=== PATIENT | female | born 1940 | race Caucasian/White ===

== ENCOUNTER 2017-01-10 18:47 | Emergency (ER) | payer OTHER ==
[2017-01-10 19:29] LABS: HEMOGLOBIN 13.5 gm/dl (12.3-15.3); RED BLOOD COUNT 4.22 M/UL (4.00-5.10); WHITE BLOOD COUNT 9.1 K/UL (4.5-11.0)
[2017-05-04] MEDS ORDERED: ALLERGY10 M1 PO (06:58)
[2017-05-04] MEDS ORDERED: BEVESPI (06:59)
[2017-05-04] MEDS ORDERED: BUMETANIDE2 MG PO (06:59)
[2017-05-04] MEDS ORDERED: AMARYL 2MG TABLE2 MG PO (07:00)
[2017-05-04] MEDS ORDERED: HYDRALAZINE HCL50 MG PO (07:01)
[2017-05-04] MEDS ORDERED: ISOSORBIDE DINI30 MG PO (07:01)
[2017-05-04] MEDS ORDERED: LEVOXYL88 MCG PO (07:03)
[2017-05-04] MEDS ORDERED: LOSARTAN POTAS100 MG PO (07:03)
[2017-05-04] MEDS ORDERED: GLUCOPHAGE500 MG PO (07:04)
[2017-05-04] MEDS ORDERED: TOPROL XL 100100 MG PO (07:05)
[2017-05-04] MEDS ORDERED: PROTONIX 40 MG40 M1 PO (07:05)
[2017-05-04] MEDS ORDERED: KLOR-CON M2020 MEQ PO (07:07)
[2017-05-04] MEDS ORDERED: ZOCOR20 MG PO (07:07)
[2017-05-04] MEDS ORDERED: LEVAQUIN500 MG PO (10:23)
== END 2017-01-10 22:50 | disposition home or self-care (01) ==
LOC: ER1 18:47
PROVIDERS: Specialist/Technologist Athletic Trainer
DX: R42 Dizziness and giddiness (principal); N28.9 Disorder of kidney and ureter, unspecified; I10 Essential (primary) hypertension; Z88.5 Allergy status to narcotic agent; Z95.0 Presence of cardiac pacemaker
CPT/HCPCS: 36415; 71010; 80053; 82550; 82553; 83874; 84484; 85025; 93005; 99284

== ENCOUNTER → 2021-04-19 | Outpatient (CLI) | payer OTHER ==
[~2021-04-19] MED LIST: ALLERGY10 M1 PO; AMARYL 2MG TABLE2 MG PO; BEVESPI; BUMETANIDE2 MG PO; GLUCOPHAGE500 MG PO; HYDRALAZINE HCL50 MG PO; ISOSORBIDE DINI30 MG PO; KLOR-CON M2020 MEQ PO; LEVAQUIN500 MG PO; LEVOXYL88 MCG PO; LOSARTAN POTAS100 MG PO; PROTONIX 40 MG40 M1 PO; TOPROL XL 100100 MG PO; ZOCOR20 MG PO
== END ==
LOC: HEART CORB 12:59
DX: I50.32 Chronic diastolic (congestive) heart failure (principal); I48.0 Paroxysmal atrial fibrillation; I08.2 Rheumatic disorders of both aortic and tricuspid valves
CPT/HCPCS: 93306